=== PATIENT | female | born 1975 | race Caucasian/White ===

== ENCOUNTER 2016-07-21 20:39 | Emergency (ER) | payer MEDICAID ==
[~2016-07-21] VITALS: Ht 165.1 cm; Wt 64.0 kg
[~2016-07-21 20:39] MED LIST: LEVO500T33 PO
[2016-07-21 21:46] LABS: PATH.CAST-FLAG NOT PRESENT; SPERM-FLAG NOT PRESENT; SRC-FLAG NOT PRESENT; XTAL-FLAG NOT PRESENT; YLC-FLAG NOT PRESENT
[2016-07-21] MEDS ORDERED: ONDANSETRON 2MG/ML, 2ML ONE (21:47)
[2016-07-21] MEDS ORDERED: HYDROmorphone 1 MG/ML, 1ML ONE (21:47)
[2016-07-21] MEDS ORDERED: HYDROmorphone 1 MG/ML, 1ML IVPush PRN (22:00)
[2016-07-21] MEDS ORDERED: SODIUM CHLORIDE FLUSH 10ML SYR IVF ONE (22:00)
[2016-07-21] MEDS ORDERED: SODIUM CHLORIDE 0.9% 1,000ML IVBOLUS ONE (22:00)
[2016-07-21] MEDS ORDERED: ONDANSETRON 2MG/ML, 2ML IVPush ONE (22:00)
[2016-07-21 22:57] LABS: HEMOGLOBIN 11.1 g/dL (11.7-16.4)
[2016-07-21 22:58] LABS: BLOOD UREA NITROGEN 15 mg/dL (7-18)
[2016-07-21 23:03] LABS: ASPARTATE AMINO TRANSFERASE 17 U/L (15-37)
[2016-07-21] MEDS ORDERED: OMNIPAQUE 350 MG/ML, 100ML BOTTLE ONE (23:27)
[2016-07-22 00:30] VITALS: BP 106/84
== END 2016-07-22 00:32 | disposition home or self-care (01) ==
LOC: ED 23:03
DX: N30.00 Acute cystitis without hematuria (principal); R10.31 Right lower quadrant pain; J45.909 Unspecified asthma, uncomplicated; Z98.51 Tubal ligation status
CPT/HCPCS: 36415; 74177; 80053; 81001; 84703; 85025; 87086; 96361; 96374; 96375; 99285; J1170; J2405; J7030; Q9967

== ENCOUNTER 2020-08-10 02:55 | Emergency (ER) | payer MEDICAID ==
[~2020-08-10] VITALS: Ht 165.1 cm; Wt 66.0 kg
[~2020-08-10 02:55] MED LIST changes: -LEVO500T33 PO; +LEVO500T47 PO
[2020-08-10 02:57] VITALS: BP 151/79
[2020-08-10] MEDS ORDERED: BACITRACIN OINT 500U/GM, 15 GM TP SCH (03:30)
[2020-08-10] MEDS ORDERED: SULFAMETH./TRIMETHOPRIM DS 800MG/160MG TABLET PO ONE (03:30)
[2020-08-10] MEDS ORDERED: DIPH,PERTUSS(ACELL),TET VAC/PF 0.5 ML IM-VACC ONE (03:30)
== END 2020-08-10 03:56 | disposition home or self-care (01) ==
LOC: ED 03:46
DX: L03.811 Cellulitis of head [any part, except face] (principal); F17.210 Nicotine dependence, cigarettes, uncomplicated; J45.909 Unspecified asthma, uncomplicated; Z86.19 Personal history of other infectious and parasitic diseases
CPT/HCPCS: 99406